=== PATIENT | female | born 1935 | race Caucasian/White ===

== ENCOUNTER 2017-10-07 10:28 | Outpatient (CLI) | payer MEDICARE | END 2017-10-07 10:29 | disposition home or self-care (01) | LOC: BICMAMMO 10:28 | PROVIDERS: ATTEND Family Medicine | DX: Z12.31 Encounter for screening mammogram for malignant neoplasm of breast (principal); Z85.3 Personal history of malignant neoplasm of breast | CPT/HCPCS: 77063; G0202; 77067 ==

== ENCOUNTER 2017-10-28 09:23 | Outpatient (CLI) | payer MEDICARE ==
--- NOTE | 2017-10-28 10:33 | RAD ---
PA AND LATERAL CHEST RADIOGRAPH: Date: 10-28-17 History: Dyspnea. Comparison: 06-15-17 FINDINGS: Lungs remain hyperexpanded. Lungs are clear. Cardiac silhouette and pulmonary vasculature are within normal limits. Osteopenia is again present. Old healed fracture right proximal humerus is again prese nt. There is S-shaped scoliosis curvature of the thoracic spine. There has been no interval changed c ompared to the prior exam. IMPRESSION: Stable chest. No evidence of acute cardiopulmonary process. POS: [facility]
== END 2017-10-28 09:24 | disposition home or self-care (01) ==
LOC: RAD 09:23
PROVIDERS: ATTEND Internal Medicine Critical Care Medicine
DX: R06.00 Dyspnea, unspecified (principal)
CPT/HCPCS: 71046

== ENCOUNTER 2018-11-01 11:23 | Outpatient (CLI) | payer MEDICARE | END 2018-11-01 11:24 | disposition home or self-care (01) | LOC: BICMAMMO 11:23 | PROVIDERS: ATTEND Family Medicine | DX: Z12.31 Encounter for screening mammogram for malignant neoplasm of breast (principal); Z80.3 Family history of malignant neoplasm of breast; Z85.3 Personal history of malignant neoplasm of breast; Z98.890 Other specified postprocedural states | CPT/HCPCS: 77063; 77067 ==

== ENCOUNTER 2019-02-23 15:54 | Outpatient (CLI) | payer MEDICARE ==
--- NOTE | 2019-02-23 16:29 | RAD ---
XR Chest Pa Lat STANDARD HISTORY: Fatigue and malaise COMPARISON: 10/28/2017 FINDINGS: The heart size is normal. The lungs are well expanded without focal areas of consolidation, pneumothorax or pleural effusions. The aorta is tortuous. Scoliosis of the spine and old healed fracture of the right proximal humerus are again noted. IMPRESSION: No radiographic evidence of acute cardiopulmonary process.
== END 2019-02-23 15:55 | disposition home or self-care (01) ==
LOC: RAD 15:54
PROVIDERS: ATTEND Family Medicine
DX: R53.83 Other fatigue (principal)
CPT/HCPCS: 71046

== ENCOUNTER 2022-02-16 18:09 | Emergency (ER) | payer MEDICARE | END 2022-02-16 21:56 | disposition home or self-care (01) | LOC: ERS 18:09 | DX: S01.81XA Laceration without foreign body of other part of head, initial encounter (principal); I10 Essential (primary) hypertension; W19.XXXA Unspecified fall, initial encounter | CPT/HCPCS: 70450; 70486; 72125 ==

== ENCOUNTER 2023-10-08 04:50 | Emergency (ER) | payer MEDICARE ==
[2023-10-08 05:28] LABS: #Basophils 0.1 thou/uL (0.0-0.2); #Eosinphils 0.6 thou/uL (0.0-0.7); #Monocytes 0.5 thou/uL (0.11-0.59); %Basophils 1.1 % (0.0-1.0); %Lymphocytes 30.1 % (21.0-51.0); %Monocytes 6.2 % (0.0-10.0); %Neutrophils 54.3 % (42.0-75.0); Hematocrit 41.2 % (36.0-47.0); Hemoglobin 13.9 g/dL (12.0-16.0); Mean Corpuscular HGB CONC 33.7 g/dL (32.0-36.0); Mean Corpuscular Hemoglobin 31.1 pg (27.0-31.0); Mean Corpuscular Volume 92.2 fl (78.0-98.0); Mean Platelet Volume 9.4 fL (7.4-10.4); Platelet Count 184 10x3/uL (130-400); Red Blood Cell (RBC) Count 4.47 mill/uL (4.20-5.40); White Blood Cell (WBC) Count 7.4 10x3/uL (4.8-10.8)
[2023-10-08 05:52] LABS: ALT (SGPT) 10 U/L (8-55); AST (SGOT) 16 U/L (5-34); Albumin 3.6 g/dL (3.4-4.8); Alkaline Phosphatase 82 U/L (40-110); Anion Gap 13 mmol/L (10-20); BUN (Urea Nitrogen) 14 mg/dL (9.8-20.1); Bilirubin, Total 0.3 mg/dL (0.2-1.2); CK (CPK) 54 U/L (29-168); Calc. Creatinine Clearance 0 mL/min (70-130); Carbon Dioxide 25 mmol/L (23-31); Chloride 106 mmol/L (98-107); Estimated GFR 73; Globulin 4.2 g/dL (2.4-3.5); Glucose 115 mg/dL (83-110); Magnesium 2.2 mg/dL (1.6-2.6); Protein, Total 7.8 g/dL (5.8-8.1); Sodium 140 mmol/L (136-145)
[2023-10-08 05:55] LABS: Troponin I Less than 0.010 ng/mL (< 0.028)
[2023-10-08] MEDS ORDERED: Lidocaine/Transparent Dressing 1 EACH KIT ONE (05:55)
[2023-10-08] MEDS ORDERED: Boostrix 0.5 ML (Tdap) VIAL (>/=7 yrs of age) ONE (05:55)
[2023-10-08] MEDS ORDERED: Acetaminophen 500 MG TAB ONE (05:55)
[2023-10-08] MEDS ORDERED: fentaNYL 50 mcg/mL 1 mL Vial ONE ×2 (06:27→07:22)
== END 2023-10-08 09:05 | disposition home or self-care (01) ==
LOC: ERS 04:50
DX: S01.01XA Laceration without foreign body of scalp, initial encounter (principal); S42.201S Unspecified fracture of upper end of right humerus, sequela; I10 Essential (primary) hypertension; Z23 Encounter for immunization; W06.XXXA Fall from bed, initial encounter; Y92.129 Unspecified place in nursing home as the place of occurrence of the external cause
CPT/HCPCS: 70450; 71045; 72125; 72170; 73030; 80053; 82550; 83735; 83880; 84484; 85025; 90715; 93005; J3010; 12002; 90471; 96374; 96376